=== PATIENT | female | born 1975 | race Hispanic/Latino ===

== ENCOUNTER 2016-11-12 13:45 | Emergency (ER) | payer OTHER ==
[~2016-11-12] VITALS: Ht 162.6 cm; Wt 90.7 kg
[~2016-11-12 13:45] MED LIST: ALBUTEROL0.09 MG/A1 INH; BENZONATATE200 MG PO; FIORICET 325 MG1 TAB PO; MONTELUKAST SOD10 MG PO; NASONEX0.05 MG/Ac INH; PERCOCET 325 MG1 TA2 PO; TOPIRAMATE100 MG PO; TOPIRAMATE50 MG PO; TRAZODONE100 MG PO; TRAZODONE150 MG PO; ZOLPIDEM TART12.5 MG PO
[2016-11-12 13:51] VITALS: BP 112/75
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
[2016-11-12] MEDS ORDERED: TRAZODONE HCL100 M1 PO (14:53)
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
[2016-11-12] MEDS ORDERED: GABAPENTIN600 M1 PO (14:54)
[2016-11-12] MEDS ORDERED: TOPIRAMATE100 M2 PO (14:54)
[2016-11-12] MEDS ORDERED: GABAPENTIN300 M2 PO (14:54)
[2016-11-12] MEDS ORDERED: BACLOFEN10 M1 PO (14:55)
[2016-11-12] MEDS ORDERED: ZOLPIDEM TART12.5 M1 PO (14:55)
[2016-11-12] MEDS ORDERED: ESCITALOPRAM OX10 MG PO (14:55)
[2016-11-12] MEDS ORDERED: VENLAFAXINE HCL75 M1 PO (14:55)
[2016-11-12] MEDS ORDERED: MONTELUKAST SOD10 M1 PO (14:56)
[2016-11-12] MEDS ORDERED: VENTOLIN HFA18 GM INH (14:56)
[2016-11-12] MEDS ORDERED: OXYCODONE-ACET1 EACH PO (14:56)
[2016-11-12] MEDS ORDERED: OCREVUS300 MG/10 (14:57)
[2016-11-12] MEDS ORDERED: VITAMIN D250000 UNIT PO (14:57)
[2016-11-12] MEDS ORDERED: CYANOCOBAL1000 MCG/2 IM (14:58)
[2016-11-12] MEDS ORDERED: CYCLOBENZAPRINE10 M1 PO (15:09)
[2016-11-12] MEDS ORDERED: MEDROL4 M2 PO (15:09)
== END 2016-11-12 15:22 ==
LOC: ERH 13:45
DX: M54.5 Low back pain (principal); M54.16 Radiculopathy, lumbar region
CPT/HCPCS: 72110